=== PATIENT | male | born 1950 | race Caucasian/White ===

== ENCOUNTER 2024-09-10 13:30 | Outpatient (RCR) | payer MEDICARE, OTHER, SELFPAY | END 2024-09-10 14:00 | disposition home or self-care (01) | LOC: HO.WCC 13:30 | PROVIDERS: PCP Internal Medicine; Visit Provider Surgery | DX: T25.211A Burn of second degree of right ankle, initial encounter (principal); I10 Essential (primary) hypertension; M17.11 Unilateral primary osteoarthritis, right knee; T31.0 Burns involving less than 10% of body surface; X12.XXXA Contact with other hot fluids, initial encounter | CPT/HCPCS: 16020; 97597; 99211; 99213 ==